=== PATIENT | male | born 1940 | race African-American/Black ===

== ENCOUNTER → 2016-12-25 | Emergency (ER) | payer OTHER ==
[~2016-12-25] MED LIST: diphenhydrAMINE HCL 25 MG CAPSULE (FP) PO ONE; predniSONE 20 MG TABLET (UD) ONE; predniSONE 20 MG TABLET (UD) PO ONE
[2016-12-25 02:51] VITALS: BMI 29.2
--- NOTE | 2016-12-25 02:58 | PDOC ---
History of Present Illness - History of Present Illness Initial Comments: 12/25/16 04:07 The patient is a 76 year old male, with a significant past medical history of, who presents to the emergency department with redness and swelling to the area surrounding his eyes for 3 days. The patient denies eating new foods or taking antibiotics recently. He reports the swelling has not increased since the onset , however, reports it has been constant. He also reports new onset of itchiness to the areas of swelling today. He denies any other symptoms. He states he has not seen a doctor in years. He denies chest pain, shortness of breath, headache and dizziness. He denies fever, chills, nausea, vomit, diarrhea and constipation. He denies dysuria, frequency, urgency and hematuria. Allergies: NKDA <Lavern Velásquez - Last Filed: 12/25/16 04:07> <Jaelyn Morales - Last Filed: 12/25/16 06:34> - General Chief Complaint: Edema Stated Complaint: FACIAL SWELLING Time Seen by Provider: 12/25/16 02:38 Past History <Lavern Velásquez - Last Filed: 12/25/16 04:07> - Past Medical History Other medical history: Pt denies - Psycho/Social/Smoking Cessation Hx Suicidal Ideation: Yes Smoking History: Former smoker Have you smoked in the past 12 months: No If you are a former smoker, when did you quit?: 1994 Information on smoking cessation initiated: No Hx Alcohol Use: No Drug/Substance Use Hx: No Substance Use Type: None <Jaelyn Morales - Last Filed: 12/25/16 06:34> - Past Medical History Allergies/Adverse Reactions: Allergies Allergy/AdvReac Type Severity Reaction Status Date / Time No Known Allergies Allergy Verified 12/25/16 02:26 Home Medications: Ambulatory Orders Diphenhydramine HCl [Benadryl -] 25 mg PO Q6H #32 capsule 12/25/16 NK [No Known Home Medication] 12/25/16 Prednisone [Deltasone -] 2 tab PO DAILY #10 tablet 12/25/16 Review of Systems - Review of Systems Able to Perform ROS?: Yes Comments:: 12/25/16 04:07 GENERAL/CONSTITUTIONAL: No fever or chills. No weakness. HEAD, EYES, EARS, NOSE AND THROAT: (+) redness, itchiness, and swelling around orbits. No change in vision. No ear pain or discharge. No sore throat. CARDIOVASCULAR: No chest pain or shortness of breath. RESPIRATORY: No cough, wheezing, or hemoptysis. GASTROINTESTINAL: No nausea, vomiting, diarrhea or constipation. GENITOURINARY: No dysuria, frequency, or change in urination. MUSCULOSKELETAL: No joint or muscle swelling or pain. No neck or back pain. SKIN: No rash NEUROLOGIC: No headache, vertigo, loss of consciousness, or change in strength/ sensation. ENDOCRINE: No increased thirst. No abnormal weight change. HEMATOLOGIC/LYMPHATIC: No anemia, easy bleeding, or history of blood clots. ALLERGIC/IMMUNOLOGIC: No hives or skin allergy. <Lavern Velásquez - Last Filed: 12/25/16 04:07> *Physical Exam - Vital Signs Last Vital Signs Temp Pulse Resp BP Pulse Ox 97.9 F 67 19 154/92 100 12/25/16 02:27 12/25/16 02:27 12/25/16 02:27 12/25/16 02:27 12/25/16 02:27 - Physical Exam Comments: 12/25/16 04:08 GENERAL: Awake, alert, and fully oriented, in no acute distress HEAD: No signs of trauma EYES: (+) swelling and redness surrounding orbits without obstruction of vision. PERRLA, EOMI, sclera anicteric, conjunctiva clear ENT: Auricles normal inspection, hearing grossly normal, nares patent, oropharynx clear without exudates. Moist mucosa NECK: Normal ROM, supple, no lymphadenopathy, JVD, or masses LUNGS: Breath sounds equal, clear to auscultation bilaterally. No wheezes, and no crackles HEART: Regular rate and rhythm, normal S1 and S2, no murmurs, rubs or gallops ABDOMEN: Soft, nontender, normoactive bowel sounds. No guarding, no rebound. No masses EXTREMITIES: Normal range of motion, no edema. No clubbing or cyanosis. No cords, erythema, or tenderness NEUROLOGICAL: Cranial nerves II through XII grossly intact. Normal speech, normal gait SKIN: Warm, Dry, normal turgor, no rashes or lesions noted. <Lavern Velásquez - Last Filed: 12/25/16 04:07> - Vital Signs Last Vital Signs Temp Pulse Resp BP Pulse Ox 97.9 F 67 19 154/92 100 12/25/16 02:27 12/25/16 02:27 12/25/16 02:27 12/25/16 02:27 12/25/16 02:27 <Jaelyn Morales - Last Filed: 12/25/16 06:34> ED Treatment Course - LABORATORY CBC & Chemistry Diagram: 12/25/16 03:44 12/25/16 03:44 - ADDITIONAL ORDERS Additional order review: 12/25/16 03:44 RBC 4.76 MCV 89.4 MCHC 33.0 RDW 14.7 MPV 7.3 L Neutrophils % 29.4 L Lymphocytes % 56.6 H Monocytes % 9.7 Eosinophils % 3.9 Basophils % 0.4 - Medications Given in the ED: ED Medications Discontinued Medications Generic Name Dose Route Start Last Admin Trade Name Santhoshq PRN Reason Stop Dose Admin Diphenhydramine HCl 50 mg 12/25/16 03:20 12/25/16 03:48 Benadryl - PO 12/25/16 03:21 50 mg ONCE ONE Administration Prednisone 60 mg 12/25/16 03:21 12/25/16 03:48 Deltasone - PO 12/25/16 03:22 60 mg ONCE ONE Administration <Lavern Velásquez - Last Filed: 12/25/16 04:07> - LABORATORY CBC & Chemistry Diagram: 12/25/16 03:44 12/25/16 03:44 <Jaelyn Morales - Last Filed: 12/25/16 06:34> Medical Decision Making - Medical Decision Making 12/25/16 06:31 Pt comes with allergic reaction to his face. Ongoing x 2 days. He doesn't know what caused it. He takes no meds. He ate no seafood or nuts or shellfish. Pt was treated with benadryl and prednisone. Labs are normal. Pt has no kidney problems, facial swelling is not due to renal issues. Pt has normal WBC count. Pt will go home with benadryl and prednisone. <Jaelyn Morales - Last Filed: 12/25/16 06:34> *DC/Admit/Observation/Transfer - Attestations Scribe Attestion: 12/25/16 04:09 Documentation prepared by Lavern Velásquez, acting as medical insurance biller for Jaelyn Morales MD <Lavern Velásquez - Last Filed: 12/25/16 04:07> - Discharge Dispostion Admit: No <Jaelyn Morales - Last Filed: 12/25/16 06:34> Diagnosis at time of Disposition: Allergic reaction - Discharge Dispostion Disposition: HOME Condition at time of disposition: Stable - Prescriptions Prescriptions: Diphenhydramine HCl [Benadryl -] 25 mg PO Q6H #32 capsule Prednisone [Deltasone -] 2 tab PO DAILY #10 tablet - Referrals Referrals: Angélica Brand MD [Staff Physician] - Jaci Guevara MD [Staff Physician] - - Patient Instructions Printed Discharge Instructions: DI for Eye Allergic Reaction, DI for General Allergic Reactions - Post Discharge Activity Work/School Note: Back to Work
[2016-12-25 03:56] LABS: BASOPHIL 0.4 % (0-2.0); EOSINOPHIL 3.9 % (0-4.5); MCH 29.5 pg (25.7-33.7); MEAN CELL VOLUME 89.4 fl (80-96); MEAN PLT VOLUME 7.3 fl (7.5-11.1); NEUTROPHILS 29.4 % (42.8-82.8); PLATELET COUNT 196 K/MM3 (134-434); RDW 14.7 % (11.9-15.9); WHITE BLOOD COUNT 4.5 K/mm3 (4.0-10.0)
[2016-12-25 04:20] LABS: ALBUMIN 3.4 g/dl (3.4-5.0); ANION GAP 9 (8-16); BILIRUBIN,TOTAL 0.4 mg/dL (0.2-1.0); CALCIUM 8.6 mg/dL (8.5-10.1); CO2 26 mmol/L (21-32); CREATININE 1.1 mg/dL (0.7-1.3); GLUCOSE,RANDOM 151 mg/dL (74-106); SGOT/AST 18 U/L (15-37); SGPT/ALT 26 U/L (12-78); TOT PROT 6.4 g/dl (6.4-8.2)
[2016-12-25 04:21] LABS: ALK PHOS 73 U/L (45-117)
[2016-12-25 04:59] VITALS: BP 153/73; PULSE 52; TEMP 98
== END | disposition home or self-care (01) ==
LOC: JER 00:48
DX: T78.49XA Other allergy, initial encounter (principal); X58.XXXA Exposure to other specified factors, initial encounter
CPT/HCPCS: 36415; 80053; 85025; 99282-25